=== PATIENT | female | born 1990 | race Hispanic/Latino ===

== ENCOUNTER → 2024-04-15 08:03 | Outpatient (REF) | payer OTHER, SELFPAY ==
[2024-04-15 09:20] LABS: Hemoglobin 9.7 g/dL (12.0-16.0); Mean Corp Hgb Conc. 31.3 g/dL (33.0-37.0); Mean Corpuscular Hgb 21.2 pg (27.0-31.0); Mean Corpuscular Volume 67.8 fL (81.0-99.0); Platelet Count 276 10^3/uL (130-400); Red Blood Cell Count 4.57 10^6/uL (4.20-5.40); Red Cell Dist. Width 15.9 % (11.5-14.5); White Blood Cell Count 6.6 10^3/uL (4.8-10.8)
[2024-04-15 09:34] LABS: ALT (SGPT) 11 U/L (0-35); AST (SGOT) 20 U/L (14-36); Albumin 3.9 g/dl (3.5-5.0); Alkaline Phosphatase 65 U/L (38-126); Blood Urea Nitrogen 19 mg/dl (7-17); Calcium 8.6 mg/dl (8.4-10.2); Carbon Dioxide 20 mmol/L (22-30); Chloride 108 mmol/L (98-107); Glucose 94 mg/dl (70-99); Potassium 4.3 mmol/L (3.5-5.1); Sodium 137 mmol/L (135-145); Total Bilirubin 0.3 mg/dl (0.2-1.3); Total Protein 6.3 g/dl (6.3-8.2); eGFR > 60.00
[2024-04-15 09:49] LABS: Free T4 1.06 ng/dl (0.78-2.19)
[2024-04-15 10:03] LABS: TSH 0.92 uIU/ml (0.47-4.68)
== END ==
LOC: REG 08:03
PROVIDERS: ATTENDING PHYSICIAN Nurse Practitioner Adult Health
DX: N92.0 Excessive and frequent menstruation with regular cycle (principal); R53.83 Other fatigue; Z83.3 Family history of diabetes mellitus
CPT/HCPCS: 36415; 80053; 83036; 84439; 84443; 85027

== ENCOUNTER → 2024-08-27 10:04 | Outpatient (REF) | payer OTHER, SELFPAY ==
[2024-08-27 11:17] LABS: Hematocrit 29.8 % (37.0-47.0); Hemoglobin 8.9 g/dL (12.0-16.0); Mean Corp Hgb Conc. 29.9 g/dL (33.0-37.0); Mean Corpuscular Hgb 19.3 pg (27.0-31.0); Mean Corpuscular Volume 64.8 fL (81.0-99.0); Mean Platelet Volume 10.4 fL (7.4-10.4); Platelet Count 293 10^3/uL (130-400); Red Cell Dist. Width 17.2 % (11.5-14.5); White Blood Cell Count 4.8 10^3/uL (4.8-10.8)
[2024-08-27 11:40] LABS: Blood Urea Nitrogen 15 mg/dl (7-17); Carbon Dioxide 23 mmol/L (22-30); Chloride 108 mmol/L (98-107); Glucose 92 mg/dl (70-99); Iron 29 ug/dl (37-170); Potassium 4.3 mmol/L (3.5-5.1); Sodium 141 mmol/L (135-145); eGFR > 60.00
[2024-08-27 11:50] LABS: Percent Saturation 6 % (20-50); Total Iron Binding Capacity 438 ug/dl (265-497)
[2024-08-27 12:16] LABS: Ferritin 3.7 ng/ml (6.24-137)
[2024-08-27 12:30] LABS: Vitamin B12 368 pg/ml (239-931)
[2024-08-27 12:36] LABS: Glycohemoglobin (HgbA1c) 5.7 % (4.0-5.6)
== END ==
LOC: CLINIC 10:04
PROVIDERS: ATTENDING PHYSICIAN Nurse Practitioner Adult Health
DX: D50.0 Iron deficiency anemia secondary to blood loss (chronic) (principal); R73.03 Prediabetes
CPT/HCPCS: 36415; 80048; 82607; 82728; 83036; 83540; 83550; 85027

== ENCOUNTER → 2024-11-07 16:50 | Outpatient (REF) | payer OTHER, SELFPAY ==
[2024-11-07 17:27] LABS: Hematocrit 34.1 % (37.0-47.0); Hemoglobin 10.5 g/dL (12.0-16.0); Mean Corp Hgb Conc. 30.8 g/dL (33.0-37.0); Mean Corpuscular Hgb 21.9 pg (27.0-31.0); Mean Corpuscular Volume 71.2 fL (81.0-99.0); Mean Platelet Volume 9.9 fL (7.4-10.4); Platelet Count 284 10^3/uL (130-400); Red Blood Cell Count 4.79 10^6/uL (4.20-5.40); Red Cell Dist. Width 21.4 % (11.5-14.5); White Blood Cell Count 7.3 10^3/uL (4.8-10.8)
== END ==
LOC: REG 16:50
PROVIDERS: ATTENDING PHYSICIAN Nurse Practitioner Adult Health
DX: D50.0 Iron deficiency anemia secondary to blood loss (chronic) (principal)
CPT/HCPCS: 36415; 85027

== ENCOUNTER → 2025-02-08 07:42 | Outpatient (REF) | payer OTHER, SELFPAY ==
[2025-02-08 09:28] LABS: Hematocrit 36.3 % (37.0-47.0); Hemoglobin 11.2 g/dL (12.0-16.0); Mean Corp Hgb Conc. 30.9 g/dL (33.0-37.0); Mean Corpuscular Hgb 23.2 pg (27.0-31.0); Mean Corpuscular Volume 75.2 fL (81.0-99.0); Mean Platelet Volume 10.1 fL (7.4-10.4); Platelet Count 263 10^3/uL (130-400); Red Blood Cell Count 4.83 10^6/uL (4.20-5.40); Red Cell Dist. Width 15.5 % (11.5-14.5); White Blood Cell Count 5.3 10^3/uL (4.8-10.8)
[2025-02-08 10:36] LABS: Blood Urea Nitrogen 22 mg/dl (7-17); Calcium 8.7 mg/dl (8.4-10.2); Carbon Dioxide 24 mmol/L (22-30); Chloride 104 mmol/L (98-107); Glucose 94 mg/dl (70-99); Iron 69 ug/dl (37-170); Sodium 138 mmol/L (135-145); eGFR > 60.00
[2025-02-08 10:45] LABS: Percent Saturation 17 % (20-50); Total Iron Binding Capacity 399 ug/dl (265-497)
[2025-02-08 12:57] LABS: Ferritin 5.4 ng/ml (6.24-137)
[2025-02-08 13:12] LABS: Vitamin B12 435 pg/ml (239-931)
== END ==
LOC: CLINIC 07:42
PROVIDERS: ATTENDING PHYSICIAN Nurse Practitioner Adult Health
DX: D50.0 Iron deficiency anemia secondary to blood loss (chronic) (principal)
CPT/HCPCS: 36415; 80048; 82607; 82728; 83540; 83550; 85027

== ENCOUNTER → 2025-05-29 16:26 | Outpatient (REF) | payer OTHER, SELFPAY ==
[2025-05-29 17:39] LABS: Hematocrit 36.1 % (37.0-47.0); Hemoglobin 11.6 g/dL (12.0-16.0); Mean Corp Hgb Conc. 32.1 g/dL (33.0-37.0); Mean Corpuscular Volume 73.1 fL (81.0-99.0); Platelet Count 263 10^3/uL (130-400); Red Cell Dist. Width 15.9 % (11.5-14.5)
[2025-05-29 17:52] LABS: Iron 36 ug/dl (37-170)
[2025-05-29 18:01] LABS: Total Iron Binding Capacity 445 ug/dl (265-497)
[2025-05-29 18:29] LABS: Ferritin 5.4 ng/ml (6.24-137)
[2025-05-29 18:43] LABS: Vitamin B12 381 pg/ml (239-931)
== END ==
LOC: CLINIC 16:26
PROVIDERS: ATTENDING PHYSICIAN Nurse Practitioner Adult Health
DX: D50.0 Iron deficiency anemia secondary to blood loss (chronic) (principal); N92.0 Excessive and frequent menstruation with regular cycle
CPT/HCPCS: 36415; 82607; 82728; 83540; 83550; 85027